=== PATIENT | female | born 1965 | race Hispanic/Latino ===

== ENCOUNTER 2020-10-16 17:44 | Emergency (ER) | payer SELFPAY ==
[~2020-10-16] VITALS: Ht 160 cm; Wt 68.0 kg
[2020-10-16 17:47] VITALS: BP 139/59
[2020-10-16] MEDS ORDERED: HYDROCODONE/ACETAMINOPHEN 5/325 MG TAB PO ONE (19:30)
[2020-10-16] MEDS ORDERED: CYCLOBENZAPRINE HCL 10 MG TABLET PO ONE (19:30)
[2020-10-16 19:41] VITALS: BP 135/61
[2020-10-16] MEDS ORDERED: GABA300S PO (21:25)
[2020-10-16 21:30] VITALS: BP 133/65
== END 2020-10-16 21:32 | disposition home or self-care (01) ==
LOC: EDH 17:44
DX: G62.9 Polyneuropathy, unspecified (principal); M79.651 Pain in right thigh; Z79.899 Other long term (current) drug therapy; M06.9 Rheumatoid arthritis, unspecified
CPT/HCPCS: 73552

== ENCOUNTER 2022-10-12 18:32 | Emergency (ER) | payer MEDICAID ==
[~2022-10-12] VITALS: Ht 160 cm; Wt 61.7 kg
[~2022-10-12 18:32] MED LIST: GABA300S3 PO
[2022-10-12 19:10] LABS: BASOPHILS # (AUTO) 0.03 K/uL (0.00-0.20); BASOPHILS % (AUTO) 0.4 % (0.0-5.0); EOSINOPHILS # (AUTO) 0.23 K/uL (0.00-0.70); EOSINOPHILS % (AUTO) 3.3 % (0.0-8.0); HEMATOCRIT 40.4 % (36-48); IMMATURE GRANULOCYTE ABSOLUTE 0.03 K/uL (0-1); LYMPHOCYTES # (AUTO) 2.2 K/uL (1.0-4.8); LYMPHOCYTES % (AUTO) 32.2 % (21.0-51.0); MEAN CORPUSCULAR HGB CONC 32.9 g/dL (32.0-36.0); MEAN CORPUSCULAR VOLUME 91.2 fL (79-99); MONOCYTES # (AUTO) 0.6 K/uL (0.1-1.0); MONOCYTES % (AUTO) 8.2 % (3.0-13.0); NEUTROPHILS # (AUTO) 3.9 K/uL (1.8-7.7); NEUTROPHILS % (AUTO) 55.5 % (40.0-77.0); PLATELET COUNT (AUTO) 296 K/uL (130-400); RED BLOOD CELL COUNT(AUTO) 4.43 MIL/uL (4.00-5.50); RED CELL DISTRIBUTION WIDTH 13.2 % (11.0-15.5)
[2022-10-12 19:13] LABS: APPEARANCE,URINE CLEAR (CLEAR); BILIRUBIN,URINE NEGATIVE (NEGATIVE); COLOR,URINE YELLOW (YELLOW); GLUCOSE, URINE (UA) NEGATIVE (NEGATIVE); KETONES,URINE NEGATIVE (NEGATIVE); LEUKOCYTE ESTERASE ,URINE 500 Leu/uL (NEGATIVE); NITRATE,URINE NEGATIVE (NEGATIVE); PROTEIN,URINE 20 mg/dL (NEGATIVE); UROBILINOGEN,URINE 0.2 mg/dL (0.2-1.0)
[2022-10-12 19:14] LABS: ADD UA MICROSCOPIC YES
[2022-10-12 19:17] LABS: BACTERIA,URINE FEW /HPF (None Seen); CALCIUM OXALATE CRYSTALS,UR RARE /LPF (None Seen); MUCUS,URINE MOD LPF (None Seen); NON-SQUAMOUS EPITHELIAL CELL 1 /HPF (0-2); OTHER CASTS, URINE 1 /LPF (None Seen); SQUAMOUS EPITHELIAL CELL,UR FEW /HPF (0-2); UNCLASSIFIED CRYSTAL <1 /HPF (None Seen)
[2022-10-12 19:20] LABS: CREATININE 0.9 mg/dL (0.5-1.5); POTASSIUM 4.1 mmol/L (3.5-5.1)
[2022-10-12] MEDS ORDERED: IBUPROFEN 600 MG TABLET ONE (19:23)
[2022-10-12 19:25] LABS: ALBUMIN 4.1 g/dL (3.5-5.0); BILIRUBIN,TOTAL 0.4 mg/dL (0.2-1.0); TOTAL PROTEIN, SERUM 7.7 g/dL (6.0-8.3)
[2022-10-12] MEDS ORDERED: 0.9%NACL 1000ML 1,000 ML IV ONE (19:30)
[2022-10-12] MEDS ORDERED: IBUPROFEN 600 MG TABLET PO ONE (19:30)
[2022-10-12 19:37] LABS: SARS-CoV-2, RNA, NAAT NEGATIVE SARS CoV-2 (NEGATIVE)
[2022-10-12 19:42] LABS: INFLUENZA TYPE A Negative For Type A (NEGATIVE); INFLUENZA TYPE B Negative For Type B (NEGATIVE)
[2022-10-12] MEDS ORDERED: CEFU500T67 PO (19:42)
[2022-10-12 20:50] VITALS: BP 143/50; PULSE 65; RESP 16; O2SAT 99
[2022-10-12] MEDS ORDERED: CEFTRIAXONE 1G VIAL ONE (21:41)
[2022-10-12] MEDS ORDERED: CEFTRIAXONE 1G VIAL IVPB ONE (22:00)
== END 2022-10-12 22:11 | disposition home or self-care (01) ==
LOC: EDH 18:32
DX: N39.0 Urinary tract infection, site not specified (principal); E11.9 Type 2 diabetes mellitus without complications; M79.7 Fibromyalgia; Z79.899 Other long term (current) drug therapy; Z20.822 Contact with and (suspected) exposure to COVID-19
CPT/HCPCS: 99283; 96374; 87635; 96361; 80053; 85025; 87088; 87804 ×2; 81001; 36415; C9803; J7030; J0696

== ENCOUNTER 2022-12-16 22:27 | Emergency (ER) | payer MEDICAID ==
[~2022-12-16] VITALS: Ht 160 cm; Wt 64.4 kg
[~2022-12-16 22:27] MED LIST changes: +CEFU500T67 PO
[2022-12-16 22:29] VITALS: BP 131/77; PULSE 69; RESP 18
[2022-12-16] MEDS ORDERED: KETOROLAC 15MG/ML VIAL (15MG/ML) IV ONE (23:00)
[2022-12-16] MEDS ORDERED: 0.9%NACL 1000ML 1,000 ML IV ONE (23:00)
[2022-12-16] MEDS ORDERED: ACETAMINOPHEN 325 MG TAB PO ONE (23:00)
[2022-12-16] MEDS ORDERED: ONDANSETRON 4MG INJ IVP ONE (23:00)
[2022-12-16 23:51] LABS: BASOPHILS # (AUTO) 0.03 K/uL (0.00-0.20); BASOPHILS % (AUTO) 0.4 % (0.0-5.0); EOSINOPHILS % (AUTO) 4.7 % (0.0-8.0); HEMATOCRIT 38.8 % (36-48); IMMATURE GRANULOCYTE ABSOLUTE 0.02 K/uL (0-1); LYMPHOCYTES # (AUTO) 2.6 K/uL (1.0-4.8); LYMPHOCYTES % (AUTO) 30.7 % (21.0-51.0); MEAN CORPUSCULAR HEMOGLOBIN 29.9 pg (27.0-33.0); MEAN CORPUSCULAR HGB CONC 32.2 g/dL (32.0-36.0); MEAN CORPUSCULAR VOLUME 92.8 fL (79-99); MONOCYTES # (AUTO) 0.8 K/uL (0.1-1.0); MONOCYTES % (AUTO) 8.8 % (3.0-13.0); NEUTROPHILS # (AUTO) 4.7 K/uL (1.8-7.7); NEUTROPHILS % (AUTO) 55.2 % (40.0-77.0); PLATELET COUNT (AUTO) 329 K/uL (130-400); RED BLOOD CELL COUNT(AUTO) 4.18 MIL/uL (4.00-5.50); RED CELL DISTRIBUTION WIDTH 12.5 % (11.0-15.5); WHITE BLOOD COUNT (AUTO) 8.6 K/uL (4.8-10.8)
[2022-12-17 00:01] LABS: CREATININE 0.7 mg/dL (0.5-1.5); POTASSIUM 4.1 mmol/L (3.5-5.1)
[2022-12-17 00:05] LABS: APPEARANCE,URINE CLEAR (CLEAR); BILIRUBIN,URINE NEGATIVE (NEGATIVE); COLOR,URINE LIGHT-YELLOW (YELLOW); GLUCOSE, URINE (UA) NEGATIVE (NEGATIVE); KETONES,URINE NEGATIVE (NEGATIVE); LEUKOCYTE ESTERASE ,URINE NEGATIVE Leu/uL (NEGATIVE); NITRATE,URINE NEGATIVE (NEGATIVE); PROTEIN,URINE NEGATIVE (NEGATIVE); UROBILINOGEN,URINE 0.2 mg/dL (0.2-1.0)
[2022-12-17 00:05] LABS: ALBUMIN 3.8 g/dL (3.5-5.0); BILIRUBIN,TOTAL 0.3 mg/dL (0.2-1.0); TOTAL PROTEIN, SERUM 8.1 g/dL (6.0-8.3)
[2022-12-17 00:08] LABS: ADD UA MICROSCOPIC NO; OCCULT BLOOD,URINE NEGATIVE (NEGATIVE)
[2022-12-17] MEDS ORDERED: IOHEXOL 350 MG/ML 100ML INFUS..BTL IV ONE (00:10)
[2022-12-17] MEDS ORDERED: DOCU-133 PO (00:51)
[2022-12-17] MEDS ORDERED: HYDR26CR2 TP (00:51)
[2022-12-17] MEDS ORDERED: NAPR-1023 PO (00:51)
== END 2022-12-17 01:20 | disposition home or self-care (01) ==
LOC: EDH 22:27
DX: M54.50 Low back pain, unspecified (principal); G89.29 Other chronic pain; R35.0 Frequency of micturition; K62.89 Other specified diseases of anus and rectum; K59.00 Constipation, unspecified; E11.9 Type 2 diabetes mellitus without complications; M79.7 Fibromyalgia; Z59.00 Homelessness unspecified; Z59.7 Insufficient social insurance and welfare support; Z79.899 Other long term (current) drug therapy
CPT/HCPCS: 99285; 74177; 96374; 96375; 80053; 83690; 85025; 81003; 36415; J7030; J2405; J1885; Q9967

== ENCOUNTER 2023-08-25 14:22 | Emergency (ER) | payer MEDICAID ==
[~2023-08-25] VITALS: Ht 160 cm; Wt 68.9 kg
[~2023-08-25 14:22] MED LIST changes: +DOCU-133 PO; +HYDR26CR2 TP; +NAPR-1023 PO
[2023-08-25 15:10] LABS: BASOPHILS # (AUTO) 0.02 K/uL (0.00-0.20); BASOPHILS % (AUTO) 0.3 % (0.0-5.0); EOSINOPHILS # (AUTO) 0.04 K/uL (0.00-0.70); EOSINOPHILS % (AUTO) 0.6 % (0.0-8.0); HEMATOCRIT 40.6 % (36-48); IMMATURE GRANULOCYTE ABSOLUTE 0.01 K/uL (0-1); LYMPHOCYTES # (AUTO) 2.1 K/uL (1.0-4.8); LYMPHOCYTES % (AUTO) 28.9 % (21.0-51.0); MEAN CORPUSCULAR HEMOGLOBIN 29.6 pg (27.0-33.0); MEAN CORPUSCULAR VOLUME 89.8 fL (79-99); MONOCYTES # (AUTO) 0.6 K/uL (0.1-1.0); MONOCYTES % (AUTO) 8.1 % (3.0-13.0); NEUTROPHILS # (AUTO) 4.5 K/uL (1.8-7.7); PLATELET COUNT (AUTO) 282 K/uL (130-400); RED BLOOD CELL COUNT(AUTO) 4.52 MIL/uL (4.00-5.50); RED CELL DISTRIBUTION WIDTH 12.3 % (11.0-15.5); WHITE BLOOD COUNT (AUTO) 7.3 K/uL (4.8-10.8)
[2023-08-25 15:22] LABS: CREATININE 0.8 mg/dL (0.5-1.0); POTASSIUM 3.6 mmol/L (3.5-5.1)
[2023-08-25 15:26] LABS: ALBUMIN 3.7 g/dL (3.5-5.0); BILIRUBIN,TOTAL 0.5 mg/dL (0.2-1.0); TOTAL PROTEIN, SERUM 7.5 g/dL (6.0-8.3)
[2023-08-25 17:03] LABS: APPEARANCE,URINE CLOUDY (CLEAR); BILIRUBIN,URINE NEGATIVE (NEGATIVE); COLOR,URINE YELLOW (YELLOW); GLUCOSE, URINE (UA) NEGATIVE (NEGATIVE); KETONES,URINE 5 mg/dL (NEGATIVE); LEUKOCYTE ESTERASE ,URINE 500 Leu/uL (NEGATIVE); NITRATE,URINE 2+ (NEGATIVE); OCCULT BLOOD,URINE MODERATE (NEGATIVE); PH,URINE 5.5 (5.0-8.0); PROTEIN,URINE 20 mg/dL (NEGATIVE); UROBILINOGEN,URINE 0.2 mg/dL (0.2-1.0)
[2023-08-25 17:17] LABS: ADD UA MICROSCOPIC YES
[2023-08-25 17:32] LABS: BACTERIA,URINE MANY /HPF (None Seen); CALCIUM OXALATE CRYSTALS,UR FEW /LPF (None Seen); MUCUS,URINE MANY LPF (None Seen); SQUAMOUS EPITHELIAL CELL,UR FEW /HPF (0-2)
[2023-08-25] MEDS ORDERED: PHEN-847 PO (17:51)
[2023-08-25] MEDS ORDERED: AMOX1TAB16 PO (17:51)
[2023-08-25] MEDS: AMOX/CLAV 875/125MG TAB PO ONE (18:05)
[2023-08-25 18:10] VITALS: BP 114/58; PULSE 14; RESP 16; O2SAT 100
== END 2023-08-25 18:21 | disposition home or self-care (01) ==
LOC: EDH 14:22
DX: N30.01 Acute cystitis with hematuria (principal); R30.0 Dysuria; F41.9 Anxiety disorder, unspecified; E11.9 Type 2 diabetes mellitus without complications; M79.7 Fibromyalgia; Z79.899 Other long term (current) drug therapy
CPT/HCPCS: 36415; 80053; 81001; 83690; 85025; 87086; 87186